=== PATIENT | female | born 1980 | race Caucasian/White ===

== ENCOUNTER 2017-06-08 12:25 | Emergency (ER) | payer OTHER ==
[~2017-06-08] VITALS: Ht 165.1 cm; Wt 76.2 kg
[~2017-06-08 12:25] MED LIST: ESTR0.5T5 PO; PRENTAB26 PO
[2017-06-08 12:29] VITALS: Ht 165.1 cm; Wt 76.2 kg
[2017-06-08 13:09] LABS: BASO % 0.3 %; BASO ABS # 0.02 K/uL (0-0.2); COMPLETE YES; EOS % 3.4 %; HEMATOCRIT 43.3 % (37-47); IG% 0.1 %; LYMPH % 23.3 %; LYMPH ABS # 1.71 K/uL (1.2-3.4); MEAN CELL VOLUME 93.7 fL (80-100); MEAN CORPUSCULAR HEMOGLOBIN 31.2 pg (25-34); MEAN CORPUSCULAR HGB CONC 33.3 g/dl (32-36); MONO % 8.5 %; NEUT % 64.4 %; PLATELET COUNT 211 K/uL (130-400); RED BLOOD COUNT 4.62 M/uL (4.2-5.4); WHITE BLOOD COUNT 7.33 K/uL (4.8-10.8)
[2017-06-08] MEDS ORDERED: AMT25 PO (13:22)
[2017-06-08] MEDS ORDERED: DOXY100C2 PO (13:22)
[2017-06-08] MEDS ORDERED: ESTR2TAB PO (13:22)
[2017-06-08] MEDS ORDERED: ULT50 PO (13:22)
[2017-06-08 13:25] LABS: ALT/SGPT 30 U/L (12-78); AST/SGOT 14 U/L (15-37); BLOOD UREA NITROGEN 13 mg/dl (7-18); BUN/CREATININE RATIO 16.9 (10-20); CALCIUM 9.1 mg/dl (8.5-10.1); CARBON DIOXIDE 27 mmol/L (21-32); CHLORIDE 104 mmol/L (98-107); CREATININE 0.78 mg/dl (0.60-1.20); GLUCOSE 103 mg/dl (70-99); SODIUM 136 mmol/L (136-145)
[2017-06-08 13:27] LABS: ALKALINE PHOSPHATASE 99 U/L (45-117); C-REACTIVE PROTEIN < 0.29 mg/dl (0-0.29)
--- NOTE | 2017-06-08 14:09 | DIAGNOSTIC IMAGING REPORT ---
MAXILLOFACIAL CT WITHOUT CONTRAST CLINICAL HISTORY: Left high pain. Cellulitis. COMPARISON STUDY: Head CT November 18, 2006. TECHNIQUE: A maxillofacial CT was performed without IV contrast. Coronal and sagittal reformats were viewed. A dose lowering technique was utilized adhering to the principles of ALARA. FINDINGS: Mastoid air cells are clear. There is mild mucosal thickening of the sphenoid sinuses. Globes are intact. There is no retrobulbar fluid collection. There is mild left preseptal/infraorbital soft tissue swelling. There is no fluid collection on this unenhanced exam to suggest an abscess. There is no post septal component. Parotid and submandibular glands are normal. IMPRESSION: Mild left preseptal/infraorbital soft tissue swelling which suggests preseptal cellulitis. No abscess. No postseptal component. Electronically signed by: Chai Jaffe M.D. 06/08/2017 2:08 PM Dictated Date/Time: 06/08/2017 2:04 PM
[2017-06-08] MEDS ORDERED: CEFTRIAXONE SOD INJ 1 GM ADDVIAL IV STA (14:27)
[2017-06-08] MEDS ORDERED: CEFD300C2 PO (14:52)
--- NOTE | 2017-06-08 15:00 | EMERGENCY ROOM VISIT NOTE ---
History Report prepared by Tessie: Al Jung Under the Supervision of: Dr. Elias Rueda D.O. First contact with patient: 12:37 Chief Complaint: SKIN PROBLEM Stated Complaint: CELLULITIS History of Present Illness The patient is a 37 year old female who presents to the Emergency Room with complaints of a worsening left facial rash beginning a few weeks ago. She was seen for her symptoms three weeks ago, was given an injection of Rocephin and started on Clindamycin. She also complains of headache, fatigue, and generalized weakness. The patient states that the rash has began moving to the right side of her face. She states that if effects her left eye, and is starting to effect her right eye. She states that she has some blurriness to her left eye. The patient has a history of frequent migraines. Source of History: patient Onset: A few weeks ago Position: head (left face) Quality: other (rash) Timing: worsening Associated Symptoms: + headache, + fatigue, + weakness (generalized) Note: Additional symptoms: left eye blurriness. Review of Systems See HPI for pertinent positives & negatives. A total of 10 systems reviewed and were otherwise negative. Past Medical & Surgical Medical Problems: (1) Endometriosis (2) Tobacco abuse Surgical Problems: (1) H/O: hysterectomy (2) S/P cholecystectomy (3) S/P laparoscopy Family History Diabetes mellitus GRANDMOTHER FH: CAD (coronary artery disease) MOTHER (AMI ) FH: cancer GRANDFATHER (Leukemia ) Hypertension FATHER Social History Smoking Status: Current Every Day Smoker Marital Status: in relationship Housing Status: lives with significant other Occupation Status: employed Current/Historical Medications Scheduled Amitriptyline HCl (Amitriptyline HCl), 25 MG PO HS Cefdinir (Omnicef), 300 MG PO Q12H Doxycycline Hyclate (Vibramycin), 100 MG PO BID Estradiol (Estradiol), 2 MG PO DAILY Scheduled PRN Tramadol HCl (Tramadol HCl), 50 MG PO TID PRN for Pain Allergies Coded Allergies: Acetaminophen (Verified Allergy, Severe, ELEVATED LIVER ENZ, 06/08/17) Penicillins (Verified Allergy, Intermediate, RASH, 08/19/09) Morphine (Verified Adverse Reaction, Mild, NAUSEA, 06/08/17) Physical Exam Vital Signs Date Time Temp Pulse Resp B/P (MAP) Pulse Ox O2 Delivery O2 Flow Rate FiO2 06/08/17 14:53 75 16 133/77 95 Room Air 06/08/17 12:29 36.7 91 16 139/79 98 Room Air Physical Exam GENERAL: Patient is awake, alert, and in no acute distress. Patient is resting comfortably and showing no signs of anxiety EYES: PERRL. EOMI and non-painful. Conjunctiva are clear. Periorbital erythema and scaling around both eyes, left greater than right. No significant swelling or proptosis. EARS, NOSE, MOUTH AND THROAT: The nose is without any evidence of any deformity. Mucous membranes are moist tongue is midline. Similar rash in the perioral region. NECK: The neck is nontender and supple. RESPIRATORY: Normal respiratory effort is noted there is no evidence of wheezing rhonchi or rales CARDIOVASCULAR: Regular rate and rhythm noted there no murmurs rubs or gallops normal S1 normal S2 GASTROINTESTINAL: The abdomen is soft. Bowel sounds are present in all quadrants. Abdomen is nontender MUSCULOSKELETAL/EXTREMITIES: There is no evidence of gross deformity full range of motion is noted in the hips and shoulders SKIN: There is no obvious evidence of any rash. There are no petechiae, pallor or cyanosis noted. No pedal edema noted. NEUROLOGIC: Patient is awake alert and oriented x3. Medical Decision & Procedures ER Provider Diagnostic Interpretation: Radiology results as stated below per my review and radiologist interpretation: MAXILLOFACIAL CT WITHOUT CONTRAST FINDINGS: Mastoid air cells are clear. There is mild mucosal thickening of the sphenoid sinuses. Globes are intact. There is no retrobulbar fluid collection. There is mild left preseptal/infraorbital soft tissue swelling. There is no fluid collection on this unenhanced exam to suggest an abscess. There is no post septal component. Parotid and submandibular glands are normal. IMPRESSION: Mild left preseptal/infraorbital soft tissue swelling which suggests preseptal cellulitis. No abscess. No postseptal component. Electronically signed by: Chai Jaffe M.D. 06/08/2017 2:08 PM Laboratory Results 06/08/17 13:00 Red Blood Count 4.62, Mean Corpuscular Volume 93.7, Mean Corpuscular Hemoglobin 31.2, Mean Corpuscular Hemoglobin Concent 33.3, Mean Platelet Volume 11.0, Neutrophils (%) (Auto) 64.4, Lymphocytes (%) (Auto) 23.3, Monocytes (%) (Auto) 8.5, Eosinophils (%) (Auto) 3.4, Basophils (%) (Auto) 0.3, Neutrophils # (Auto) 4.72, Lymphocytes # (Auto) 1.71, Monocytes # (Auto) 0.62, Eosinophils # (Auto) 0.25, Basophils # (Auto) 0.02 06/08/17 13:00 Test 06/08/17 13:00 White Blood Count 7.33 K/uL (4.8-10.8) Red Blood Count 4.62 M/uL (4.2-5.4) Hemoglobin 14.4 g/dL (12.0-16.0) Hematocrit 43.3 % (37-47) Mean Corpuscular Volume 93.7 fL (80-100) Mean Corpuscular Hemoglobin 31.2 pg (25-34) Mean Corpuscular Hemoglobin Concent 33.3 g/dl (32-36) Platelet Count 211 K/uL (130-400) Mean Platelet Volume 11.0 fL (7.4-10.4) Neutrophils (%) (Auto) 64.4 % Lymphocytes (%) (Auto) 23.3 % Monocytes (%) (Auto) 8.5 % Eosinophils (%) (Auto) 3.4 % Basophils (%) (Auto) 0.3 % Neutrophils # (Auto) 4.72 K/uL (1.4-6.5) Lymphocytes # (Auto) 1.71 K/uL (1.2-3.4) Monocytes # (Auto) 0.62 K/uL (0.11-0.59) Eosinophils # (Auto) 0.25 K/uL (0-0.5) Basophils # (Auto) 0.02 K/uL (0-0.2) RDW Standard Deviation 44.7 fL (36.4-46.3) RDW Coefficient of Variation 13.0 % (11.5-14.5) Immature Granulocyte % (Auto) 0.1 % Immature Granulocyte # (Auto) 0.01 K/uL (0.00-0.02) Erythrocyte Sedimentation Rate 10 mm/hr (0-21) Anion Gap 5.0 mmol/L (3-11) Est Creatinine Clear Calc Drug Dose 101.8 ml/min Estimated GFR () 113.4 Estimated GFR (Non- 97.8 BUN/Creatinine Ratio 16.9 (10-20) Calcium Level 9.1 mg/dl (8.5-10.1) Total Bilirubin 0.2 mg/dl (0.2-1) Direct Bilirubin < 0.1 mg/dl (0-0.2) Aspartate Amino Transf (AST/SGOT) 14 U/L (15-37) Alanine Aminotransferase (ALT/SGPT) 30 U/L (12-78) Alkaline Phosphatase 99 U/L (45-117) C-Reactive Protein < 0.29 mg/dl (0-0.29) Total Protein 7.8 gm/dl (6.4-8.2) Albumin 4.3 gm/dl (3.4-5.0) Laboratory results per my review. Medications Administered Medications (Trade) Dose Ordered Sig/Willow Route Start Time Stop Time Status Last Admin Dose Admin Ceftriaxone Sodium (Rocephin Inj) 1 gm NOW STAT IV 06/08/17 14:27 06/08/17 14:28 DC 06/08/17 14:53 1 GM ED Course 1242: The patient was evaluated in room C9. A complete history and physical examination were performed. 1427: Ordered Rocephin Inj 1 gm IV. 1445: Upon reevaluation, the patient is resting comfortably. I discussed the results and treatment plan with her. She verbalized agreement of the treatment plan. The patient was discharged home. Medical Decision Differential diagnosis: Etiologies such as shingles, cellulitis, abscess, MRSA infection, necrotizing fasciitis, dermatitis, drug eruption, as well as others were entertained. Nursing notes reviewed. The patient is a 37-year-old female who presented to the emergency department for an evaluation of eye pain and redness. The patient states that she had mostly left thigh symptoms but there also appears to be some symptoms with her right eye. The patient has some erythema also around her perioral region. The patient was treated with antibiotics initially and did respond but symptoms have returned. She was placed on doxycycline. This did not appear to improve her symptoms greatly. The patient's laboratory and radiographic studies were discussed with her. I do feel this represents periorbital cellulitis but not likely an orbital cellulitis at this time. She was encouraged to stop wearing her contacts and continue all medications as prescribed. I added a different antibiotic. She was given IV anabiotic emergency department. She was encouraged to follow-up with her family doctor within the next 48 hours for further evaluation but return to the emergency department immediately if symptoms change worsen or the need arises. Medication Reconcilliation Current Medication List: was personally reviewed by me Blood Pressure Screening Patient's blood pressure: Elevated blood pressure Blood pressure disposition: Elevated BP felt to be situational Impression Primary Impression: Periorbital cellulitis of left eye Scribe Attestation The scribe's documentation has been prepared under my direction and personally reviewed by me in its entirety. I confirm that the note above accurately reflects all work, treatment, procedures, and medical decision making performed by me. Departure Information Dispostion Home / Self-Care Prescriptions Cefdinir (OMNICEF) 300 Mg Cap 300 MG PO Q12H, #20 CAP Prov: Elias Rueda, DO 06/08/17 Referrals Bola Osborne M.D. (PCP) Forms HOME CARE DOCUMENTATION FORM, IMPORTANT VISIT INFORMATION, WORK / SCHOOL INSTRUCTIONS Patient Instructions ED Cellulitis Karen Orbital, My [facility] Additional Instructions Call your family to schedule a follow-up appointment. Continue taking Motrin and Tylenol as directed for pain. Continue all other medications as prescribed. Is
[2017-06-08 15:18] VITALS: BP 133/77; PULSE 75; TEMP 36.7; O2SAT 95
== END 2017-06-08 15:20 | disposition home or self-care (01) ==
LOC: C.EDB 12:26 → C.EDC 15:20
DX: L03.213 Periorbital cellulitis (principal); G43.909 Migraine, unspecified, not intractable, without status migrainosus; F17.200 Nicotine dependence, unspecified, uncomplicated; Z90.710 Acquired absence of both cervix and uterus; Z83.3 Family history of diabetes mellitus; Z82.49 Family history of ischemic heart disease and other diseases of the circulatory system